=== PATIENT | female | born 1950 | race Caucasian/White ===

== ENCOUNTER 2020-07-08 08:23 | Day surgery (SDC) | payer MEDICARE, OTHER ==
[2020-07-02 11:08] VITALS: BMI 22.8
[~2020-07-08 08:23] MED LIST: LACTATED RINGERS 1,000 ML IV SCH; LIDOCAINE 1% (10MG/ML) FOR IV START INTRADERMA PRN
[2020-07-08 08:46] VITALS: TEMP 98.4
[2020-07-08] MEDS ORDERED: LIDOCAINE 1% INJ 10MG/ML (20 ML MDV) ONE (09:18)
[2020-07-08] MEDS ORDERED: PROPOFOL 10 MG/ML 20 ML VIAL IV ONE (09:18)
[2020-07-08 10:01] VITALS: RESP 16
--- NOTE | 2020-07-08 10:04 | P.PCN ---
Date of Procedure: 07/08/20 Description of Procedure: BRIEF HISTORY: Patient is a 69-year-old female presenting for outpatient colonoscopy for screening for malignant neoplasm of the colon. She denies any change in bowel habits, blood per rectum or abdominal pain. No family history of colon cancer. PROCEDURE PERFORMED: Colonoscopy with polypectomy. PREOPERATIVE DIAGNOSIS: Screening for malignant neoplasm of the colon, last colonoscopy 14 years ago. ESTIMATED BLOOD LOSS: Minimal. IV sedation per Anesthesia. PROCEDURE: After informed consent was obtained, the patient, was brought into the endoscopy unit. IV sedation was administered by Anesthesia under continuous monitoring. Digital rectal examination was normal. Initially the Olympus CF-190 flexible video colonoscope was then inserted in the rectum, gradually advanced into the cecum without any difficulty. Careful examination was performed as the scope was gradually being withdrawn. Ileocecal valve and the appendiceal orifice were visualized and appeared normal. Prep was excellent. Mucosa of the cecum, ascending colon, transverse colon, descending colon, sigmoid colon, and rectum appeared normal. 2 polyps measuring 4 and 5 mm in size removed from the ascending colon and hepatic flexure with cold snare polypectomy. 2 diminutive polyps measuring 1-2 mm in size removed from the ileocecal valve and sigmoid colon with cold forcep polypectomy. Retroflexion was performed in the rectum and no lesions were seen, low-grade internal hemorrhoids. The patient tolerated the procedure well. IMPRESSION: 2 flat polyps removed with cold snare polypectomy in the ascending colon and hepatic flexure. 2 diminutive polyps removed with cold forcep polypectomy from the ileocecal valve and sigmoid colon. Internal hemorrhoids. RECOMMENDATIONS: Findings of this examination were discussed with the patient. Okay to resume diet, okay to resume medication. Await pathology from polypectomies. Recommend repeat colonoscopy in 5 years pending pathology from polypectomy
[2020-07-08 10:24] VITALS: BP 99/60; PULSE 60
== END 2020-07-08 10:52 | disposition home or self-care (01) ==
LOC: ORWHC2ENDO 08:23
PROVIDERS: ATTEND Internal Medicine
DX: Z12.11 Encounter for screening for malignant neoplasm of colon (principal); K63.5 Polyp of colon; K64.8 Other hemorrhoids; E78.5 Hyperlipidemia, unspecified; E07.9 Disorder of thyroid, unspecified; Z98.890 Other specified postprocedural states; F17.200 Nicotine dependence, unspecified, uncomplicated; Z79.899 Other long term (current) drug therapy; Z88.5 Allergy status to narcotic agent; Z91.09 Other allergy status, other than to drugs and biological substances
CPT/HCPCS: 88305; 45380; 45385; J2001; J2704

== ENCOUNTER → 2020-08-08 | Outpatient (CLI) | payer MEDICARE, OTHER ==
--- NOTE | 2020-08-11 08:24 | MM ---
Reason for exam: screening (asymptomatic). History: Patient is postmenopausal. Family history of breast cancer in mother at age 70 and breast cancer in 2 maternal aunts at age 50. 2 benign excisional biopsies of the left breast. Took hormonal contraceptives for 10 years. Physical Findings: A clinical breast exam by your physician is recommended on an annual basis and results should be correlated with mammographic findings. MG 3D Screening Mammo W/Cad Bilateral CC and MLO view(s) were taken. No prior studies available for comparison. There are scattered fibroglandular densities. There are benign appearing round, vascular calcifications bilaterally. There is no discrete abnormality. ASSESSMENT: Benign, BI-RAD 2 RECOMMENDATION: Routine screening mammogram of both breasts in 1 year.
== END | disposition home or self-care (01) ==
LOC: RADMAMWWP 10:43
PROVIDERS: ATTEND Internal Medicine
DX: Z12.31 Encounter for screening mammogram for malignant neoplasm of breast (principal)
CPT/HCPCS: 77063; 77067

== ENCOUNTER → 2021-06-15 | Outpatient (CLI) | payer MEDICARE, OTHER ==
--- NOTE | 2021-06-15 15:37 | XR ---
EXAMINATION TYPE: XR knee complete bilateral DATE OF EXAM: 06/15/2021 CLINICAL HISTORY: Pain and swelling after recent fall injury. TECHNIQUE: Three views of the bilateral knees are obtained. COMPARISON: None. FINDINGS: There is no acute fracture/dislocation evident in either knee. Meniscal calcification bila terally is redemonstrated. Mild to moderate symmetric tricompartment joint space loss again seen with out significant spurring. Overlying clothing material is present bilaterally. IMPRESSION: There is no acute fracture or dislocation in either knee.
== END | disposition home or self-care (01) ==
LOC: RADXRMAIN 14:42
PROVIDERS: ATTEND Internal Medicine
DX: S89.91XA Unspecified injury of right lower leg, initial encounter (principal); S89.92XA Unspecified injury of left lower leg, initial encounter; W19.XXXA Unspecified fall, initial encounter

== ENCOUNTER → 2021-08-10 | Outpatient (CLI) | payer MEDICARE, OTHER ==
--- NOTE | 2021-08-11 08:28 | MM ---
Reason for exam: screening (asymptomatic). Last mammogram was performed 1 year ago. History: Patient is postmenopausal. Family history of breast cancer in mother at age 70 and breast cancer in 2 maternal aunts at age 50. 2 benign excisional biopsies of the left breast. Took hormonal contraceptives for 10 years. Physical Findings: A clinical breast exam by your physician is recommended on an annual basis and results should be correlated with mammographic findings. MG 3D Screening Mammo W/Cad Bilateral CC and MLO view(s) were taken. Prior study comparison: August 08, 2020, bilateral MG 3d screening mammo w/cad. There are scattered fibroglandular densities. There are benign appearing round linear calcifications bilaterally. There is chronic nodularity in the left breast. There is no discrete abnormality. ASSESSMENT: Benign, BI-RAD 2 RECOMMENDATION: Routine screening mammogram of both breasts in 1 year.
== END | disposition home or self-care (01) ==
LOC: RADMAMWWP 10:52
PROVIDERS: ATTEND Internal Medicine
DX: Z12.31 Encounter for screening mammogram for malignant neoplasm of breast (principal)
CPT/HCPCS: 77063; 77067

== ENCOUNTER → 2022-08-11 | Outpatient (CLI) | payer MEDICARE, OTHER ==
--- NOTE | 2022-08-11 11:37 | MM ---
Reason for Exam: Screening (asymptomatic). Last mammogram was performed 1 year(s) and 1 month(s) ago. Patient History: Menarche at age 13. First Full-Term at age 19. Postmenopausal. Patient used Hormonal Contraceptives for 10 years. Benign Excisional Biopsy on the left side. Benign Excisional Biopsy on the left side. Maternal aunt had breast cancer, age 50. Maternal aunt had breast cancer, age 50. Mother had breast cancer, age 70. Risk Values: Liyah 5 year model risk: 4.8%. NCI Lifetime model risk: 12.9%. Prior Study Comparison: 08/08/2020 Bilateral Screening Mammogram, [facility]. 08/10/2021 Bilateral Screening Mammogram, [facility]. Tissue Density: There are scattered fibroglandular densities. Findings: Analyzed By CAD. There is no suspicious group of microcalcifications or new suspicious mass in either breast. Overall Assessment: Negative, BI-RAD 1 Management: Screening Mammogram of both breasts in 1 year. A clinical breast exam by your physician is recommended on an annual basis and results should be correlated with mammographic findings. [facility] will attempt to contact patient to return for supplemental views and ultrasound if indicated. Electronically signed and approved by: Giancarlo Henning DO
== END | disposition home or self-care (01) ==
LOC: RADMAMWWP 10:43
PROVIDERS: ATTEND Internal Medicine
DX: Z12.31 Encounter for screening mammogram for malignant neoplasm of breast (principal); Z78.0 Asymptomatic menopausal state; Z80.3 Family history of malignant neoplasm of breast; Z98.890 Other specified postprocedural states
CPT/HCPCS: 77063; 77067

== ENCOUNTER → 2023-08-12 | Outpatient (CLI) | payer MEDICARE, OTHER ==
--- NOTE | 2023-08-15 09:07 | MM ---
Reason for Exam: Screening (asymptomatic). Last screening mammogram was performed 12 month(s) ago. Patient History: Menarche at age 13. First Full-Term at age 19. Postmenopausal. Patient used Hormonal Contraceptives for 10 years. Benign Excisional Biopsy on the left side. Benign Excisional Biopsy on the left side. Maternal aunt had breast cancer, age 50. Maternal aunt had breast cancer, age 50. Mother had breast cancer, age 70. Risk Values: Liyah 5 year model risk: 4.9%. NCI Lifetime model risk: 12.3%. Prior Study Comparison: 08/08/2020 Bilateral Screening Mammogram, [facility]. 08/10/2021 Bilateral Screening Mammogram, [facility]. 08/11/2022 Bilateral MG 3D screening mammo w/cad, [facility]. Tissue Density: The breast tissue is heterogeneously dense. This may lower the sensitivity of mammography. Findings: Analyzed By CAD. There is no suspicious group of microcalcifications or new suspicious mass in either breast. Overall Assessment: Benign, BI-RAD 2 Management: Screening Mammogram of both breasts in 1 year. . Patient should continue monthly self-breast exams. A clinical breast exam by your physician is recommended on an annual basis. This exam should not preclude additional follow-up of suspicious palpable abnormalities. Note on Liyah scores and lifetime risk: 1. A Liyah score greater than 3% is considered moderate risk. If this is the case, consider specialist referral to assess eligibility for a risk reducing agent. 2. If overall lifetime risk for the development of breast cancer is 20% or higher, the patient may qualify for future screening with alternating mammogram and breast MRI. Electronically signed and approved by: Marquez Antunez M.D. Radiologis
== END | disposition home or self-care (01) ==
LOC: RADMAMWWP 08:51
PROVIDERS: ATTEND Internal Medicine
DX: Z12.31 Encounter for screening mammogram for malignant neoplasm of breast (principal); Z80.3 Family history of malignant neoplasm of breast; Z78.0 Asymptomatic menopausal state
CPT/HCPCS: 77063; 77067

== ENCOUNTER → 2024-06-19 | Outpatient (CLI) | payer MEDICARE, OTHER ==
--- NOTE | 2024-06-19 15:21 | CTL ---
EXAMINATION TYPE: CT Low Dose Lung DATE OF EXAM ORDERED: 06/19/2024 COMPARISON: None CLINICAL INDICATION: Female, 73 years old with history of Z12.2 LUNG CA SCR F17.210 CURRENT SMOKER; PH[facility], personal hx of nicotine dependence 1ppd X 54 years current smoker, Lung cancer screening, Histor y of Smoking/tobacco use. TECHNIQUE: Low dose computed tomography scan was performed through the chest at 1 mm thick sections a nd reconstructed images in multiple planes at 1 mm and [address] DLP: 38.[address] CTDI: 1.1 mGy Automated exposure control for dose reduction was used. CT DIAGNOSTIC QUALITY: Satisfactory FINDINGS: Nodules: Lingular 1.8 mm solid pulmonary nodule (series 6, image 38). Right midlung 3.3 mm subpleural pulmonary nodule (series 6, image 35). LUNGS: COPD: Severity: Mild Fibrosis: Severity: None Lymph nodes: None Other findings: Biapical pleural-parenchymal scarring. Minimal reticular peripheral scarring within t he anterior right midlung. RIGHT PLEURAL SPACE: Effusion: None Calcification: None Thickening: None Pneumothorax: None LEFT PLEURAL SPACE: Effusion: None Calcification: None Thickening: None Pneumothorax: None HEART: Heart Size: Normal heart size. Small aortic valvular calcifications. Coronary Calcification: None Pericardial Effusion: None OTHER FINDINGS: Upper abdomen: Left hepatic lobe 2.3 cm cyst. Bony thorax: Chronic appearing anterior wedge compression deformity of the T8 vertebral body. Approxi mately 50% height loss anteriorly. No retropulsion. Mild multilevel degenerative disc disease. Supraclavicular region: None Other: Mild atherosclerotic calcification of the aorta and its branches. IMPRESSION: 1. Couple of pulmonary nodules measuring less than 4 mm. 2. Mild COPD changes. 3. Chronic anterior wedge compression deformity T8 vertebral body. Correlate with point tenderness. CT LUNG RAD AND CT CHEST RECOMMENDATION: Lung-Rad 2 Benign Appearance or Behavior: Continue annual sc reening with LDCT in 12 months. S Modifier (other clinically significant findings): None [facility], , 06/19/2024 3:19 PM
== END | disposition home or self-care (01) ==
LOC: RADCTMAIN 14:24
PROVIDERS: ATTEND Internal Medicine
DX: Z12.2 Encounter for screening for malignant neoplasm of respiratory organs (principal); F17.210 Nicotine dependence, cigarettes, uncomplicated; J44.9 Chronic obstructive pulmonary disease, unspecified; R91.8 Other nonspecific abnormal finding of lung field; M48.54XA Collapsed vertebra, not elsewhere classified, thoracic region, initial encounter for fracture
CPT/HCPCS: 71271

== ENCOUNTER → 2024-08-13 | Outpatient (CLI) | payer MEDICARE, OTHER ==
--- NOTE | 2024-08-13 13:19 | BD ---
EXAMINATION TYPE: Axial Bone Density DATE OF EXAM: 08/13/2024 CLINICAL HISTORY: 73 years old Female. ICD-10 CODE: M8588, N951 POST AMANDA, OTHER DISORDER OF BONE , Additional History: Height: 63.25 Weight: 123 FRAX RISK QUESTIONS: Alcohol (3 or more units per day): no Family History (Parent hip fracture): no Glucocorticoids (More than 3mos): no (Ex: prednisone, prednisolone, methylprednisolone, dexamethasone, and hydrocortisone). History of Fracture in Adulthood: no Secondary Osteoporosis: 1. Type 1 Diabetes: no 2. Hyperthyroidism: no 3. Menopause before 45: no 4. Malnutrition: no 5. Chronic liver disease: no Rheumatoid Arthritis: no Current Tobacco Use: yes RISK FACTORS HISTORY OF: Hip Fracture (Right/Left): no Spine Fracture: no History of Wrist Fracture: no Surgery to Spine/Hip(right/left)/Wrist (right/left): no MEDICATIONS: Thyroid Medications: Levothyroxine How Long: About 15 years Osteoporosis Medications: no EXAM MEASUREMENTS: Bone mineral densitometry was performed using the [employer] System. Bone mineral density as measured about the Lumbar spine is: ----- L1-L4(G/cm2): 1.348 T Score Values are as follows: ----- L1: -0.3 ----- L2: -0.1 ----- L3: 2.6 ----- L4: 2.5 ----- L1-L4: 1.4 Z Score Values are as follows: ----- L1: 1.8 ----- L2: 2.0 ----- L3: 4.6 ----- L4: 4.5 ----- L1-L4: 3.4 Baseline Study Bone mineral density about the R hip (g/cm2): 0.699 Bone mineral density about the L hip (g/cm2): 0.705 T Score values are as follows: -----R Neck: -1.7 -----L Neck: -2.0 -----R Total: -2.5 -----L Total: -2.4 Z Score values are as follows: -----R Neck: 0.3 -----L Neck: 0.0 -----R Total: -0.6 -----L Total: -0.5 Baseline Study FRAX%s: The graph provided illustrates a 13.1% chance for a major osteoporotic fx and a 5.0% chance f or the hips probability for fx in 10 years time. IMPRESSION: Osteopenia (T Score between -2.5 and -1). There is slightly increased risk of fracture and the patient may be considered for treatment. Re-Screen 2-5 years. NOTE: T-SCORE=SD OF THE YOUNG ADULT MEAN. [facility], , 08/13/2024 1:16 PM
--- NOTE | 2024-08-13 13:24 | MM ---
Reason for Exam: Screening (asymptomatic). Last screening mammogram was performed 12 month(s) ago. Patient History: Menarche at age 13. First Full-Term at age 19. Postmenopausal. Patient has history of breast feeding. Patient used Hormonal Contraceptives for 10 years. Benign Excisional Biopsy on the left side. Benign Excisional Biopsy on the left side. Maternal aunt had breast cancer, age 50. Maternal aunt had breast cancer, age 50. Mother had breast cancer, age 70. Risk Values: Liyah 5 year model risk: 4.9%. NCI Lifetime model risk: 11.7%. Prior Study Comparison: 08/10/2021 Bilateral Screening Mammogram, [facility]. 08/11/2022 Bilateral MG 3D screening mammo w/cad, [facility]. 08/12/2023 Bilateral MG 3D screening mammo w/cad, [facility]. Tissue Density: The breasts are heterogeneously dense, which may obscure small masses. Findings: Analyzed By CAD. There are few benign-appearing round and vascular calcifications bilaterally redemonstrated. There is no suspicious group of microcalcifications or new suspicious mass in either breast. Overall Assessment: Benign, BI-RAD 2 Management: Screening Mammogram of both breasts in 1 year. . Patient should continue monthly self-breast exams. A clinical breast exam by your physician is recommended on an annual basis. This exam should not preclude additional follow-up of suspicious palpable abnormalities. Note on Liyah scores and lifetime risk: 1. A Liyah score greater than 3% is considered moderate risk. If this is the case, consider specialist referral to assess eligibility for a risk reducing agent. 2. If overall lifetime risk for the development of breast cancer is 20% or higher, the patient may qualify for future screening with alternating mammogram and breast MRI. [facility], , 08/13/2024 1:21 PM. Electronically signed and approved by: Kb Fofana M.D.
== END | disposition home or self-care (01) ==
LOC: RADMAMWWP 12:26
PROVIDERS: ATTEND Internal Medicine
DX: Z12.31 Encounter for screening mammogram for malignant neoplasm of breast (principal); R92.333 Mammographic heterogeneous density, bilateral breasts; M85.89 Other specified disorders of bone density and structure, multiple sites; Z78.0 Asymptomatic menopausal state; Z92.0 Personal history of contraception; Z80.3 Family history of malignant neoplasm of breast
CPT/HCPCS: 77063; 77067; 77080